=== PATIENT | male | born 1955 | race Caucasian/White ===

== ENCOUNTER → 2022-08-23 12:12 | Outpatient (CLI) | payer MEDICARE, SELFPAY | PROVIDERS: Family Provider Family Medicine; PCP Family Medicine; Visit Provider Urology | DX: N40.1 Benign prostatic hyperplasia with lower urinary tract symptoms (principal); R82.81 Pyuria; R97.20 Elevated prostate specific antigen [PSA] | CPT/HCPCS: 81002; 87086; 99213 ==

== ENCOUNTER → 2023-11-07 07:59 | Outpatient (CLI) | payer OTHER, SELFPAY ==
[2023-11-09 06:52] LABS: PSA, Total 4.3 ng/mL (0.0-4.0)
== END ==
PROVIDERS: Family Provider Family Medicine; PCP Family Medicine; Referring Provider Urology; Visit Provider Urology
DX: R97.20 Elevated prostate specific antigen [PSA] (principal)
CPT/HCPCS: 36415; 84153; 84154

== ENCOUNTER → 2024-05-24 08:10 | Outpatient (CLI) | payer MEDICARE, SELFPAY | PROVIDERS: Family Provider Family Medicine; PCP Family Medicine; Visit Provider Urology | DX: R39.9 Unspecified symptoms and signs involving the genitourinary system (principal) | CPT/HCPCS: 87086 ==

== ENCOUNTER → 2024-11-21 08:56 | Outpatient (CLI) | payer MEDICARE, SELFPAY | PROVIDERS: Family Provider Family Medicine; PCP Family Medicine; Visit Provider Urology | DX: R39.9 Unspecified symptoms and signs involving the genitourinary system (principal); R39.14 Feeling of incomplete bladder emptying; R97.20 Elevated prostate specific antigen [PSA]; N40.1 Benign prostatic hyperplasia with lower urinary tract symptoms; Z68.21 Body mass index [BMI] 21.0-21.9, adult | CPT/HCPCS: 51798; 81002; 87086; 99213 ==